=== PATIENT | female | born 1945 | race Caucasian/White ===

== ENCOUNTER 2019-07-05 10:38 | Observation (INO) ==
[2019-07-05] MEDS ORDERED: Aspirin 81 MG TAB.CHEW PO ONE (11:09)
[2019-07-05 12:03] LABS: Basophils # 0.1 K/mcL (0.0-0.2); Basophils % 0.9 %; Eosinophils # 0.1 K/mcL (0.0-0.6); Eosinophils % 1.7 %; Hematocrit 44.5 % (35.3-44.9); Hemoglobin 15.1 g/dL (11.5-15.4); Immature Granulocytes % 0.1 % (0-4); Lymphocytes # 2.8 K/mcL (0.6-4.6); Lymphocytes % 40.2 %; Mean Corpuscular HGB Conc 33.9 g/dL (31.6-35.5); Mean Corpuscular Hemoglobin 30.6 pg (28.0-33.3); Mean Corpuscular Volume 90.1 fL (83.0-100.0); Mean Platelet Volume 10.1 fL (9.4-12.4); Monocytes # 0.4 K/mcL (0.0-1.3); Neutrophils # 3.6 K/mcL (1.6-8.9); Platelet Count 280 K/mcL (140-400); Red Blood Count 4.94 M/mcL (3.82-4.97); Red Cell Distribution Width 12.1 % (11.5-14.5); Segmented Neutrophils % 51.1 %
[2019-07-05 12:11] LABS: Prothrombin Time 11.7 Seconds (9.4-12.1)
[2019-07-05 12:13] LABS: Activated Partial Thrombo Time 28.9 Seconds (26.0-36.0)
[2019-07-05 12:24] LABS: BUN/Creatinine Ratio 18 (6-26); Blood Urea Nitrogen 16 mg/dL (8-23); Calcium 9.9 mg/dL (8.6-10.3); Carbon Dioxide 24 mEq/L (23-29); Chloride 109 mEq/L (98-107); Glucose 104 mg/dL (70-105); Osmolality,Calculated 287 (280-300); Potassium 3.7 mEq/L (3.5-5.1); Sodium 138 mEq/L (136-145); Troponin I < 0.03 ng/mL (< 0.04); eGFR For African Americans > 60 (> 60); eGFR For Non-African Americans > 60 (> 60)
[2019-07-05] MEDS ORDERED: *HR* Heparin 5,000 UNIT/ML VIAL IVP PRN ×2 (15:24)
[2019-07-05] MEDS ORDERED: *HR* Heparin 5,000 UNIT/ML VIAL IVP ONE (15:24)
[2019-07-05] MEDS ORDERED: Heparin 25,000 UNIT/250 ML D5W 25,000 UNIT/250 ML IV.SOLN IVC SCH (15:30)
[2019-07-05 15:52] LABS: Heparin anti-factor XA UFH 0.03 IU/mL (0.30-0.70); INR 1.1
[2019-07-05] MEDS ORDERED: Naloxone 0.4 MG/ML INJ IVP PRN (16:30)
[2019-07-05] MEDS ORDERED: Ondansetron ODT 4 MG TAB.RAPDIS SL PRN (16:30)
[2019-07-05] MEDS ORDERED: Benzonatate 100 MG CAPSULE PO PRN (17:19)
[2019-07-06] MEDS ORDERED: Regadenoson 0.4 MG/5 ML SYRINGE IVP ONE (06:18)
[2019-07-06 07:23] LABS: Troponin I < 0.03 ng/mL (< 0.04)
[2019-07-06] MEDS ORDERED: Aspirin 81 MG TAB.CHEW PO SCH (09:00)
[2019-07-06 13:47] LABS: Thyroid Stimulating Hormone 4.286 mcIU/mL (0.340-5.600)
[2019-07-06 15:24] VITALS: BP 93/59
[2019-07-06] MEDS ORDERED: Apixaban 5 MG TABLET PO SCH (21:00)
== END 2019-07-06 18:01 | disposition home or self-care (01) ==
LOC: SUATTDRO → 2ANU 10:38 → EMEROOARM 10:38 → SUATTDRO 16:44 → 2ANU 17:06
PROVIDERS: ADMIT Family Medicine; ATTEND Family Medicine